=== PATIENT | male | born 1950 | race Caucasian/White ===

== ENCOUNTER 2017-12-23 19:48 | Emergency (ER) | payer OTHER ==
--- NOTE | 2017-12-23 20:18 | ER ---
Nurse's Notes [facility] Name: Bakari Damico Jr Age: 67 yrs Sex: Male : 1950 Arrival Date: 12/23/2017 Time: 19:52 Bed Waiting Private MD: Diagnosis: ED Course: 12/23 19:52 Patient arrived in ED. es 20:17 Ramin Macias MD is Attending Physician. aj Administered Medications: No medications were administered Outcome: 20:16 Eloped from waiting room, Time discovered patient gone: December 23, 2017 at 20:17 aj 20:17 Patient left the ED. aj Signatures: Yara Medeiros, RN RN Galina Curtis es
== END 2017-12-23 20:17 | disposition left against medical advice (07) ==
LOC: ER 19:48
DX: Z53.21 Procedure and treatment not carried out due to patient leaving prior to being seen by health care provider (principal)

== ENCOUNTER 2017-12-23 20:56 | Observation (INO) | payer OTHER ==
[2017-12-23] MEDS ORDERED: ACETAMINOPHEN 500 MG TAB ONE ×2 (21:11→23:53)
[2017-12-23 22:03] LABS: Urine Bacteria >50 /HPF (NONE SEEN)
[2017-12-23 22:04] LABS: Urine Culture Reflex Order NOT NEEDED
[2017-12-23 22:06] LABS: Urine Blood 2+ (NEG); Urine Glucose NEGATIVE (NEG); Urine Protein 1+ (NEG)
[2017-12-23] MEDS ORDERED: MORPHINE 4 MG/ML SYR ONE (22:35)
[2017-12-23] MEDS ORDERED: ONDANSETRON 4 MG/2 ML VIAL ONE (22:35)
[2017-12-23] MEDS ORDERED: NA CHLORIDE 0.9% 1,000 ML ONE (22:35)
[2017-12-23 22:50] LABS: Absolute Lymphocytes (CBC) 1.1 K/uL (0.7-4.9); Absolute Monocytes 1.4 K/uL (0.1-1.3); Absolute Neutrophil 16.5 K/uL (1.8-8.0); Basophils % 0.6 % (0-1.3); Lymphocytes % 5.9 % (15.3-44.8); MCH 30.4 pg (27.0-35.0); MCV 92.5 fL (80-100); MPV 8.3 fL (7.6-11.3); Monocytes % 7.5 % (3.3-12.3); RBC Red Blood Cell Count 4.65 M/uL (4.33-5.43)
[2017-12-23 22:59] LABS: Potassium 3.3 mEq/L (3.6-5.0)
[2017-12-23 23:05] LABS: Albumin 3.9 g/dL (3.2-5.5); Bilirubin Direct 0.3 mg/dL (0-0.2); Bilirubin Total 1.8 mg/dL (0.3-1.2); Protein, Total 6.8 g/dL (6.0-8.3)
[2017-12-23 23:42] LABS: Blood Morphology Comment NOT SEEN (NOT SEEN); Platelet Estimate ADEQ
[2017-12-24] MEDS ORDERED: MORPHINE 4 MG/ML SYR ONE (00:41)
[2017-12-24] MEDS ORDERED: ONDANSETRON 4 MG/2 ML VIAL ONE (00:41)
[2017-12-24] MEDS ORDERED: CEFTRIAXONE/SWI 1gm 1 GM/10 ML SYR ONE (01:18)
--- NOTE | 2017-12-24 01:32 | ER ---
Nurse's Notes [facility] Name: Bakari Damico Jr Age: 67 yrs Sex: Male : 1950 Arrival Date: 12/23/2017 Time: 21:00 Bed 18 Private MD: Diagnosis: Pyelonephritis Presentation: 12/23 21:10 Presenting complaint: Patient states: Low back pain, burning with urination and chills aj for 3 days. Transition of care: patient was not received from another setting of care. Onset of symptoms was December 21, 2017. Risk Assessment: Do you want to hurt yourself or someone else? Patient reports no desire to harm self or others. Initial Sepsis Screen: Does the patient meet any 2 criteria? Temp <36.0*C (96.8*F)) or > 38.3*C (100.4*F). Care prior to arrival: None. 21:10 Method Of Arrival: Ambulatory aj 21:10 Acuity: JEANMARIE 3 aj 22:14 Initial Sepsis Screen: Does the patient have a suspected source of infection? Yes: ea Dysuria/Frequency/Urgency/UTI. Triage Assessment: 21:12 General: Appears in no apparent distress. comfortable, Behavior is calm, cooperative, aj appropriate for age. Neuro: Level of Consciousness is awake, alert, obeys commands, Oriented to person, place, time, situation, Appropriate for age. Respiratory: Airway is patent Respiratory effort is even, unlabored, Respiratory pattern is regular, symmetrical. : Reports burning with urination, pain in lower back. Derm: Skin is intact, is healthy with good turgor, Skin is pink, warm \T\ dry. normal. Historical: - Allergies: 21:12 No Known Allergies; aj - Home Meds: 21:12 losartan oral oral [Active]; atorvastatin oral oral [Active]; aj - PMHx: 21:12 Hyperlipidemia; Hypertension; aj - PSHx: 21:12 Bladder; aj - Immunization history:: Adult Immunizations up to date. - Social history:: Smoking status: Patient/guardian denies using tobacco. - Ebola Screening: : Patient negative for fever greater than or equal to 101.5 degrees Fahrenheit, and additional compatible Ebola Virus Disease symptoms Patient denies exposure to infectious person Patient denies travel to an Ebola-affected area in the 21 days before illness onset No symptoms or risks identified at this time. Screenin:14 Abuse screen: Denies threats or abuse. Nutritional screening: No deficits noted. ea Tuberculosis screening: No symptoms or risk factors identified. Fall Risk None identified. Assessment: 22:13 General: Appears uncomfortable, Behavior is calm, cooperative, appropriate for age. ea Pain: Complains of pain in left low back and right low back Pain currently is 4 out of 10 on a pain scale. Quality of pain is described as aching. Neuro: Level of Consciousness is awake, alert, obeys commands, Oriented to person, place, time, situation. Cardiovascular: Patient's skin is warm and dry. Respiratory: Airway is patent Respiratory effort is even, unlabored, Respiratory pattern is regular, symmetrical. GI: Abdomen is round non-distended, Bowel sounds present X 4 quads. Abd is soft and non tender. : Reports burning with urination. EENT: No deficits noted. Derm: Skin is pink, warm \T\ dry. 23:19 Reassessment: Patient and/or family updated on plan of care and expected duration. Pain ea level reassessed. Pt resting with eyes closed, respirations even and unlabored, chest expansions even and symmetrical. No s/s of pain or discomfort noted at this time. 23:49 Reassessment: pt taken to CT. ea 12/24 00:36 Reassessment: Patient and/or family updated on plan of care and expected duration. Pain ea level reassessed. Patient is alert, oriented x 3, equal unlabored respirations, skin warm/dry/pink. pt c/o pain feels like it's coming back. 01:50 Reassessment: Patient and/or family updated on plan of care and expected duration. Pain ea level reassessed. Patient is alert, oriented x 3, equal unlabored respirations, skin warm/dry/pink. Patient states symptoms have improved. 02:15 Reassessment: Patient and/or family updated on plan of care and expected duration. Pain ea level reassessed. Pt resting with eyes closed, respirations even and unlabored, chest expansions even and symmetrical. No s/s of pain or discomfort noted at this time. 03:14 Reassessment: Patient and/or family updated on plan of care and expected duration. Pain ea level reassessed. Patient is alert, oriented x 3, equal unlabored respirations, skin warm/dry/pink. Patient states symptoms have improved. 03:40 Reassessment: Patient and/or family updated on plan of care and expected duration. Pain ea level reassessed. Patient is alert, oriented x 3, equal unlabored respirations, skin warm/dry/pink. Report called to Cherise BURROWS on fourth floor. Vital Signs: 12/23 21:12 BP 125 / 70; Pulse 91; Resp 20; Temp 101.7; Pulse Ox 96% on R/A; Weight 111.13 kg; aj Height 6 ft. 0 in. (182.88 cm); 22:15 BP 131 / 75; Pulse 80; Resp 18 S; Pulse Ox 99% on R/A; ea 23:03 BP 134 / 72; Pulse 78; Resp 18; Temp 99.8(O); Pulse Ox 95% on R/A; ea 12/24 00:37 BP 129 / 65; Pulse 78; Resp 18; Temp 98.1; Pulse Ox 97% on R/A; ea 01:50 BP 126 / 70; Pulse 76; Resp 19; Pulse Ox 99% on R/A; ea 02:30 BP 120 / 68; Pulse 70; Resp 18 S; Pulse Ox 98% on R/A; ea 03:40 BP 130 / 78; Pulse 72; Resp 18; Temp 98(O); Pulse Ox 99% on R/A; Pain 3/10; ea 12/23 21:12 Body Mass Index 33.23 (111.13 kg, 182.88 cm) aj ED Course: 12/23 21:00 Patient arrived in ED. es 21:12 Triage completed. aj 21:12 Arm band placed on left wrist. Patient placed. Antipyretics given from triage as aj ordered by an ER provider. 21:57 Tj Murphy NP is PHCP. pm1 21:58 Ramin Macias MD is Attending Physician. pm1 22:07 Arlin Sanchez, MARKOS is Primary Nurse. ea 22:14 Patient has correct armband on for positive identification. Bed in low position. Call ea light in reach. Side rails up X 1. 22:40 Inserted saline lock: 20 gauge in right antecubital area, using aseptic technique. ea Blood collected. 23:[address] via wheelchair. kw1 12/24 00:04 CT completed. Patient tolerated procedure well. Patient moved back from CT. kw1 00:09 CT Abd/Pelvis - W/Contrast: IV contrast only In Process Unspecified. EDMS 01:31 Kate Vallejo MD is Hospitalizing Provider. pm1 03:14 No provider procedures requiring assistance completed. ea 03:50 Patient admitted, IV remains in place. ea Administered Medications: 12/23 22:42 Drug: NS 0.9% 1000 ml Route: IV; Rate: 1000 ml; Site: right antecubital; ea 22:42 Drug: morphine 4 mg Route: IVP; Site: right antecubital; ea 23:25 Follow up: Response: No adverse reaction; Pain is decreased ea 22:42 Drug: Zofran 4 mg Route: IVP; Site: right antecubital; ea 23:24 Follow up: Response: No adverse reaction; Pain is decreased ea 12/24 00:15 Drug: Tylenol 1000 mg Route: PO; ea 01:15 Follow up: Response: No adverse reaction; Pain is decreased ea 00:45 Drug: morphine 2 mg Route: IVP; Site: right antecubital; ea 01:15 Follow up: Response: No adverse reaction; Pain is decreased ea 01:31 Drug: Rocephin 1 grams Route: IV; Rate: calculated rate; Site: right antecubital; ea 01:32 Drug: Zofran 4 mg Route: IVP; Site: right antecubital; ea Outcome: 01:32 Decision to Hospitalize by Provider. pm1 02:00 Instructed on the need for admit. ea 03:45 Admitted to Med/surg accompanied by tech, via wheelchair, room 212, with chart, Report ea called to Cherise BURROWS 03:45 Condition: improved 03:50 Patient left the ED. ea Signatures: Dispatcher [employer] Yara Gamez RN Galina Garcia Patrick SURFACE GRINDER SURFACE GRINDER pm1 Arlin Sanchez RN RN ea Wilhelm, Kimberly kw1 Ted Valdovinos RN RN mg2 Corrections: (The following items were deleted from the chart) 00:34 06 23:03 BP 134 / 72; Pulse 78bpm; Resp 18bpm; Pulse Ox 95% RA; mg2 ea 12/24 04:56 04:05 Patient left the ED. ea ea
--- NOTE | 2017-12-24 01:32 | EDPHYS ---
Physician Documentation [facility] Name: Bakari Damico Jr Age: 67 yrs Sex: Male : 1950 Arrival Date: 12/23/2017 Time: 21:00 Bed 18 Private MD: ED Physician Ramin Macias HPI: 12/24 01:24 This 67 yrs old Male presents to ER via Ambulatory with complaints of Urinary pm1 Problem. 01:25 The patient presents with flank pain, of the left low back and right low back. Onset: pm1 The symptoms/episode began/occurred 3 day(s) ago. Modifying factors: The symptoms are alleviated by nothing. Associated signs and symptoms: Pertinent positives: dysuria, fever, nausea, Pertinent negatives: abdominal pain, constipation, diarrhea, vomiting. Severity of symptoms: in the emergency department the symptoms are actually worse. The patient has experienced a previous episode, 2-3 years ago patient with prostatitis . The patient has not recently seen a physician, out of town. Patient with bilateral flank pain with burning with urination for 3 days. Patient with chills and fever. Historical: - Allergies: 12/23 21:12 No Known Allergies; aj - Home Meds: 21:12 losartan oral oral [Active]; atorvastatin oral oral [Active]; aj - PMHx: 21:12 Hyperlipidemia; Hypertension; aj - PSHx: 21:12 Bladder; aj - Immunization history:: Adult Immunizations up to date. - Social history:: Smoking status: Patient/guardian denies using tobacco. - Ebola Screening: : Patient negative for fever greater than or equal to 101.5 degrees Fahrenheit, and additional compatible Ebola Virus Disease symptoms Patient denies exposure to infectious person Patient denies travel to an Ebola-affected area in the 21 days before illness onset No symptoms or risks identified at this time. ROS: 12/24 01:25 Eyes: Negative for injury, pain, redness, and discharge, ENT: Negative for injury, pm1 pain, and discharge, Neck: Negative for injury, pain, and swelling, Cardiovascular: Negative for chest pain, palpitations, and edema, Respiratory: Negative for shortness of breath, cough, wheezing, and pleuritic chest pain, Abdomen/GI: Negative for abdominal pain, nausea, vomiting, diarrhea, and constipation. MS/Extremity: Negative for injury and deformity, Skin: Negative for injury, rash, and discoloration, Neuro: Negative for headache, weakness, numbness, tingling, and seizure. Constitutional: Positive for body aches, chills, fever, Negative for Back: Positive for flank pain, bilaterally. : Positive for flank pain, burning with urination. Exam: 01:25 Constitutional: This is a well developed, well nourished patient who is awake, alert, pm1 and in no acute distress. 01:25 Head/Face: Normocephalic, atraumatic. Eyes: Pupils equal round and reactive to light, extra-ocular motions intact. Lids and lashes normal. Conjunctiva and sclera are non-icteric and not injected. Cornea within normal limits. Periorbital areas with no swelling, redness, or edema. ENT: Nares patent. No nasal discharge, no septal abnormalities noted. Tympanic membranes are normal and external auditory canals are clear. Oropharynx with no redness, swelling, or masses, exudates, or evidence of obstruction, uvula midline. Mucous membranes moist. Neck: Trachea midline, no thyromegaly or masses palpated, and no cervical lymphadenopathy. Supple, full range of motion without nuchal rigidity, or vertebral point tenderness. No Meningismus. Chest/axilla: Normal chest wall appearance and motion. Nontender with no deformity. No lesions are appreciated. Cardiovascular: Regular rate and rhythm with a normal S1 and S2. No gallops, murmurs, or rubs. Normal PMI, no JVD. No pulse deficits. Respiratory: Lungs have equal breath sounds bilaterally, clear to auscultation and percussion. No rales, rhonchi or wheezes noted. No increased work of breathing, no retractions or nasal flaring. Back: No spinal tenderness. No costovertebral tenderness. Full range of motion. 01:25 Skin: Warm, dry with normal turgor. Normal color with no rashes, no lesions, and no evidence of cellulitis. MS/ Extremity: Pulses equal, no cyanosis. Neurovascular intact. Full, normal range of motion. 01:25 Constitutional: The patient appears febrile. 01:25 Abdomen/GI: Inspection: abdomen appears normal, Bowel sounds: normal, Palpation: abdomen is soft and non-tender, Rectal exam: Prostate: normal, rectal tone normal, mass, is not appreciated, tenderness, is not appreciated, Arlin BURROWS. 01:25 Neuro: Orientation: is normal, Motor: is normal, moves all fours, strength is normal. Vital Signs: 12/23 21:12 BP 125 / 70; Pulse 91; Resp 20; Temp 101.7; Pulse Ox 96% on R/A; Weight 111.13 kg; aj Height 6 ft. 0 in. (182.88 cm); 22:15 BP 131 / 75; Pulse 80; Resp 18 S; Pulse Ox 99% on R/A; ea 23:03 BP 134 / 72; Pulse 78; Resp 18; Temp 99.8(O); Pulse Ox 95% on R/A; ea 12/24 00:37 BP 129 / 65; Pulse 78; Resp 18; Temp 98.1; Pulse Ox 97% on R/A; ea 01:50 BP 126 / 70; Pulse 76; Resp 19; Pulse Ox 99% on R/A; ea 02:30 BP 120 / 68; Pulse 70; Resp 18 S; Pulse Ox 98% on R/A; ea 03:40 BP 130 / 78; Pulse 72; Resp 18; Temp 98(O); Pulse Ox 99% on R/A; Pain 3/10; ea 12/23 21:12 Body Mass Index 33.23 (111.13 kg, 182.88 cm) aj MDM: 12/23 21:59 Patient medically screened. [facility] 12/24 01:27 Data reviewed: vital signs. Data interpreted: Pulse oximetry: on room air is 97 %. pm1 Interpretation: normal. Counseling: I had a detailed discussion with the patient and/or guardian regarding: the historical points, exam findings, and any diagnostic results supporting the discharge/admit diagnosis, lab results, radiology results, the need for further work-up and treatment in the hospital. 01:41 Physician consultation: Kate Vallejo MD was called at 01:41, was contacted at 01:42, pm1 regarding admission, patient's condition, and will see patient. 12/23 21:35 Order name: Urine Dipstick--Ancillary (enter results); Complete Time: 22:22 cc 12/23 21:35 Order name: Urine Microscopic Only; Complete Time: 22:22 cc 12/23 21:35 Order name: Urine Culture cc 12/23 22:22 Order name: Basic Metabolic Panel pm1 12/23 22:22 Order name: CBC with Diff pm1 12/23 22:22 Order name: Creatinine for Radiology pm1 12/23 22:22 Order name: Hepatic Function pm1 12/23 22:22 Order name: Lipase pm1 12/23 22:23 Order name: Basic Metabolic Panel; Complete Time: 23:25 EDMS 12/23 22:23 Order name: CBC with Automated Diff; Complete Time: 23:49 EDMS 12/23 22:23 Order name: Creatinine (Radiology Only); Complete Time: 23:25 EDMS 12/23 22:23 Order name: Liver (Hepatic) Function; Complete Time: 23:25 EDMS 12/23 22:23 Order name: Lipase; Complete Time: 23:25 EDMS 12/23 22:59 Order name: Manual Differential; Complete Time: 23:49 EDMS 12/23 21:35 Order name: Urine Dipstick-Ancillary (obtain specimen); Complete Time: 22:12 cc 12/23 22:22 Order name: IV Saline Lock; Complete Time: 22:43 pm1 12/23 22:22 Order name: Labs collected and sent; Complete Time: 22:43 pm1 12/23 22:23 Order name: CT Abd/Pelvis - W/Contrast: IV contrast only; Complete Time: 17:13 pm1 12/23 23:26 Order name: Blood Culture Adult (2) pm1 Administered Medications: 12/23 22:42 Drug: NS 0.9% 1000 ml Route: IV; Rate: 1000 ml; Site: right antecubital; ea 22:42 Drug: morphine 4 mg Route: IVP; Site: right antecubital; ea 23:25 Follow up: Response: No adverse reaction; Pain is decreased ea 22:42 Drug: Zofran 4 mg Route: IVP; Site: right antecubital; ea 23:24 Follow up: Response: No adverse reaction; Pain is decreased ea 12/24 00:15 Drug: Tylenol 1000 mg Route: PO; ea 01:15 Follow up: Response: No adverse reaction; Pain is decreased ea 00:45 Drug: morphine 2 mg Route: IVP; Site: right antecubital; ea 01:15 Follow up: Response: No adverse reaction; Pain is decreased ea 01:31 Drug: Rocephin 1 grams Route: IV; Rate: calculated rate; Site: right antecubital; ea 01:32 Drug: Zofran 4 mg Route: IVP; Site: right antecubital; ea Disposition: 12/24/17 01:32 Hospitalization ordered by Kate Vallejo for Observation. Preliminary diagnosis is Pyelonephritis. - Bed requested for Telemetry/MedSurg (observation). - Status is Observation. ea - Condition is Stable. - Problem is new. - Symptoms have improved. UTI on Admission? Yes Addendum: 12/26/2017 06:52 Co-signature as Attending Physician, Ramin Macias MD I agree with the assessment and c ryan plan of care. Signatures: Dispatcher [employer] EDMS Lyudmila Escamilla RN RN kl Myers, Amanda, RN RN aj Anderson, Corey, MD MD cha Christian, Chelsea cc Marinas, Patrick, STAFF DESIGN ENGINEER STAFF DESIGN ENGINEER pm1 Arlin Sanchez RN RN ea Corrections: (The following items were deleted from the chart) 12/24 01:32 01:32 Hospitalization Ordered by Kate Vallejo MD for Observation. Preliminary pm1 diagnosis is pyelonephritis. Bed requested for Telemetry/MedSurg (observation). Status is Observation. Condition is Stable. Problem is new. Symptoms have improved. UTI on Admission? Yes. pm1 02:53 01:32 12/24/2017 01:32 Hospitalization Ordered by Kate Vallejo MD for Observation. kl Preliminary diagnosis is Pyelonephritis. Bed requested for Telemetry/MedSurg (observation). Status is Observation. Condition is Stable. Problem is new. Symptoms have improved. UTI on Admission? Yes. pm1 04:05 02:53 12/24/2017 01:32 Hospitalization Ordered by Kate Vallejo MD for Observation. ea Preliminary diagnosis is Pyelonephritis. Bed requested for Telemetry/MedSurg (observation). Status is Observation. Condition is Stable. Problem is new. Symptoms have improved. UTI on Admission? Yes. rosario
--- NOTE | 2017-12-24 02:45 | P.HP ---
Certification for Inpatient Patient admitted to: Observation With expected LOS: <2 Midnights Practitioner: I am a practitioner with admitting privileges, knowledge of patient current condition, hospital course, and medical plan of care. Services: Services provided to patient in accordance with Admission requirements found in Title 42 Section 412.3 of the Code of Federal Regulations Patient History Date of Service: 12/24/17 Reason for admission: sepsis due to UTI History of Present Illness: Mr Damico is a 67 years old male with history of HTN, Dyslipidemia, prostatitis , benign bladder tumor removed about 5 years ago, who start yesterday with back pain associated with chills, nausea and generalized malaise. He was also complaining of burning urination. Along the day, the symptoms partially improved , however, later last night, he start feeling bad again and decided to come to ER to be evaluated. At arrival, he was febrile 101.7 F, lab work remarkable for leukocytosis, 19.7K, bands 6%, UA abnormal consistent with UTI. - Past Medical/Surgical History -: HTN -: Dyslipidemia -: prostatitis -: bladder - Family History Family History: Reviewed- Non-Contributory - Social History Smoking Status: Former smoker Alcohol use: Yes CD- Drugs: No Caffeine use: Yes Place of Residence: Home Review of Systems 10-point ROS is otherwise unremarkable Physical Examination - Physical Exam General: Alert, In no apparent distress HEENT: Atraumatic, PERRLA, Mucous membr. moist/pink, EOMI, Sclerae nonicteric Neck: Supple, 2+ carotid pulse no bruit, No LAD, Without JVD or thyroid abnormality Respiratory: Clear to auscultation bilaterally, Normal air movement Cardiovascular: Regular rate/rhythm, Normal S1 S2 Gastrointestinal: Normal bowel sounds, No tenderness Musculoskeletal: No tenderness Integumentary: No rashes Neurological: Normal speech, Normal strength at 5/5 x4 extr, Normal tone, Normal affect Lymphatics: No axilla or inguinal lymphadenopathy - Studies Laboratory Data (last 24 hrs) 12/23/17 22:30: Creatinine 1.17 12/23/17 22:30: WBC 19.2 H, Hgb 14.1, Hct 43.0, Plt Count 177 12/23/17 22:30: Sodium 132 L, Potassium 3.3 L, BUN 18, Creatinine 1.24, Glucose 118, Total Bilirubin 1.8 H, AST 16, ALT 19, Alkaline Phosphatase 57, Lipase 22 Assessment and Plan - Problems (Diagnosis) (1) Sepsis Current Visit: Yes Status: Acute Qualifiers: Sepsis type: sepsis due to unspecified organism Qualified Code(s): A41.9 - Sepsis, unspecified organism (2) UTI (urinary tract infection) Current Visit: Yes Status: Acute Qualifiers: Urinary tract infection type: acute cystitis Hematuria presence: without hematuria Qualified Code(s): N30.00 - Acute cystitis without hematuria (3) HTN (hypertension) Current Visit: Yes Status: Acute Qualifiers: Hypertension type: essential hypertension Qualified Code(s): I10 - Essential (primary) hypertension (4) Dyslipidemia Current Visit: Yes Status: Acute - Plan #1 sepsis: He has fever, leukocytosis with bandemia. This is secondary to UTI. Consider prostatitis, since he has previous history with similar presentation. Will order PSA. Blood and urine culture in process. #2 HTN: will resume his home medication after been verified. - Advance Directives Does patient have a Living Will: No Does patient have a Durable POA for Healthcare: No - Code Status/Comfort Care Code Status Assessed: Yes Code Status: Full Code
[2017-12-24] MEDS ORDERED: ONDANSETRON 4 MG/2 ML VIAL IV PRN (03:46)
[2017-12-24] MEDS: NA CHLORIDE 0.9% 1,000 ML IV SCH ×3 (04:24→23:46)
[2017-12-24 05:07] LABS: Absolute Lymphocytes (CBC) 0.8 K/uL (0.7-4.9); Absolute Monocytes 0.9 K/uL (0.1-1.3); Absolute Neutrophil 15.4 K/uL (1.8-8.0); Basophils % 0.2 % (0-1.3); Eosinophils % 0.1 % (0-4.4); Hematocrit 43.8 % (39.6-49.0); Lymphocytes % 4.9 % (15.3-44.8); MCH 30.9 pg (27.0-35.0); MCV 93.3 fL (80-100); MPV 8.2 fL (7.6-11.3); Monocytes % 5.3 % (3.3-12.3)
[2017-12-24 05:25] LABS: Magnesium 1.8 mg/dL (1.8-2.5); Potassium 3.5 mEq/L (3.6-5.0)
[2017-12-24] MEDS ORDERED: MAGNESIUM SULFATE 1 gm IVPB 1 GM/100 ML BAG IV ONE (05:27)
[2017-12-24] MEDS ORDERED: POTASSIUM 25 MEQ EFFERV TAB PO ONE (05:28)
[2017-12-24] MEDS ORDERED: Morphine 2 MG/2 ML SYR IV ONE (05:34)
[2017-12-24 06:07] VITALS: BMI 32.9
[2017-12-24] MEDS: ENOXAPARIN 40 MG/0.4 ML SQ SCH (07:56)
[2017-12-24] MEDS ORDERED: CEFTRIAXONE 1 GM/NS 50 ML 1 GM/50 ML BAG IV SCH (09:00)
[2017-12-24] MEDS ORDERED: PNEUMOCOCCAL VACCINE 0.5 ML IMVAC ONE (09:00)
--- NOTE | 2017-12-24 09:48 | RAD REPORT ---
EXAM DESCRIPTION: CT - Abdomen Pelvis W Contrast - 12/24/2017 3:23 am CLINICAL HISTORY: Back pain, dysuria, flank pain A preliminary written report was provided at the time of the study, and the report was reviewed prio r to final dictation. COMPARISON: None. TECHNIQUE: Biphasic, helical CT imaging of the abdomen and pelvis was performed following 100 ml non -ionic IV contrast. No oral contrast administered. All CT scans are performed using dose optimization technique as appropriate and may include automated exposure control or mA/KV adjustment according to patient size. FINDINGS: No suspicious findings in the lung bases. Liver, spleen and pancreas show no acute findings. Liver does demonstrate a mild diffuse fatty infilt ration. Gallbladder and biliary tree are also without suspicious finding. Gallstones can be occult. Symmetric renal function is seen with no hydronephrosis or suspicious renal mass. No pyelonephritis i dentified. Partially filled urinary bladder shows prominent love. Cystitis cannot be excluded. No bl adder calculus. Prostate gland is enlarged and projects into the bladder base. No adjacent edema to s uspect prostatitis. No dilated bowel loops or bowel wall thickening. Mild prominence of a few small bowel loops noted. No nspecific enteritis would be possible. The appendix is normal. No free air, free fluid or inflammator y stranding. No mass or bulky lymphadenopathy. A very small periumbilical fat filled hernia present. No adrenal abnormality. No suspicious bony findings. IMPRESSION: No obstruction, free air or surgically emergent finding. Love of the urinary bladder are prominent which may be artifact of partial contraction. Cystitis is not excluded and can be correlated with laboratory and exam findings. Enlargement of prostate gland without CT findings of prostatitis. Fatty infiltration of the liver. A few minimally prominent small bowel loops could indicate a nonspec ific enteritis.
[2017-12-24] MEDS: ACETAMINOPHEN 500 MG TAB PO PRN ×2 (12:08→18:12)
[2017-12-24] MEDS: TRAMADOL HCL 50 MG TAB PO PRN (18:17)
[2017-12-24] MEDS ORDERED: NA CHLORIDE 0.9% 500 ML IV ONE (18:51)
[2017-12-24] MEDS ORDERED: NA CHLORIDE 0.9% 500 ML ONE (18:55)
[2017-12-24] MEDS ORDERED: ATORVASTATIN 10 MG TAB PO SCH (21:00)
[2017-12-25] MEDS: NA CHLORIDE 0.9% 1,000 ML IV SCH (01:53)
[2017-12-25] MEDS: TRAMADOL HCL 50 MG TAB PO PRN (03:28)
[2017-12-25 04:58] LABS: Absolute Lymphocytes (CBC) 1.3 K/uL (0.7-4.9); Absolute Monocytes 1.1 K/uL (0.1-1.3); Absolute Neutrophil 14.1 K/uL (1.8-8.0); Basophils % 0.2 % (0-1.3); Eosinophils % 0.5 % (0-4.4); Hematocrit 39.7 % (39.6-49.0); MCH 30.4 pg (27.0-35.0); MCV 93.4 fL (80-100); MPV 8.4 fL (7.6-11.3); Monocytes % 6.8 % (3.3-12.3); RBC Red Blood Cell Count 4.25 M/uL (4.33-5.43)
[2017-12-25 05:20] LABS: Potassium 3.8 mEq/L (3.6-5.0)
[2017-12-25] MEDS ORDERED: POTASSIUM 25 MEQ EFFERV TAB PO ONE (06:06)
[2017-12-25] MEDS ORDERED: CEFTRIAXONE/SWI 1gm 1 GM/10 ML SYR IVP SCH (09:00)
[2017-12-25] MEDS ORDERED: ASPIRIN 81 MG CHEWABLE TABLET PO SCH (09:00)
[2017-12-25] MEDS ORDERED: LOSARTAN POTASSIUM 50 MG TABLET PO SCH (09:00)
[2017-12-25] MEDS ORDERED: HOME MED 1 EA UNK (Losartan Potassium [Losartan Potassium] 25 MG) PO SCH (09:00)
[2017-12-25] MEDS ORDERED: SIMVASTATIN 5 MG PO SCH (09:00)
[2017-12-25] MEDS: ENOXAPARIN 40 MG/0.4 ML SQ SCH (09:26)
[2017-12-25 09:34] VITALS: O2SAT 93
[2017-12-25 12:06] VITALS: BP 140/84; TEMP 98.2
--- NOTE | 2017-12-25 15:04 | P.SSS ---
Patient History Date of Service: 12/25/17 Primary Care Provider: PRESTON Reason for admission: sepsis due to UTI History of Present Illness: SEE HPI Allergies No Known Allergies Allergy (Unverified 12/24/17 03:44) Home Medications: Aspirin 81 mg PO DAILY 12/24/17 Losartan Potassium 25 mg PO DAILY 12/24/17 Simvastatin 5 mg PO DAILY 12/24/17 Levofloxacin [Levaquin] 500 mg PO DAILY #10 tab 12/25/17 Metronidazole [Flagyl] 500 mg PO Q8H #30 tablet 12/25/17 - Past Medical/Surgical History Has patient received pneumonia vaccine in the past: No Diabetic: No -: HTN -: Dyslipidemia -: prostatitis -: bladder - Family History Family History: Reviewed- Non-Contributory - Social History Smoking Status: Former smoker Alcohol use: No CD- Drugs: No Caffeine use: Yes Place of Residence: Home Review of Systems General: As per HPI Physical Examination - Vital Signs Temperature: 98.2 F Blood Pressure: 140/84 Pulse: 65 Respirations: 18 Pulse Ox (%): 95 - Physical Exam General: Alert, In no apparent distress HEENT: Atraumatic, PERRLA, Mucous membr. moist/pink, EOMI, Sclerae nonicteric Neck: Supple, 2+ carotid pulse no bruit, No LAD, Without JVD or thyroid abnormality Respiratory: Clear to auscultation bilaterally, Normal air movement Cardiovascular: Regular rate/rhythm, Normal S1 S2 Gastrointestinal: Normal bowel sounds, No tenderness Musculoskeletal: No tenderness Integumentary: No rashes Neurological: Normal gait, Normal speech, Normal strength at 5/5 x4 extr, Normal tone, Normal affect Lymphatics: No axilla or inguinal lymphadenopathy - Studies Microbiology Data (last 24 hrs): 12/23/17 21:30 Clean Catch Urine [place] Count - Final >100,000 CFU/ML. 12/23/17 21:30 Clean Catch Urine - Final Escherichia Coli - Diagnosis (Problem(s)) (1) Sepsis Status: Acute Qualifiers: Sepsis type: Escherichia coli Qualified Code(s): A41.51 - Sepsis due to Escherichia coli [E. coli] (2) UTI (urinary tract infection) Status: Acute Qualifiers: Urinary tract infection type: acute cystitis Hematuria presence: without hematuria Qualified Code(s): N30.00 - Acute cystitis without hematuria (3) Dyslipidemia Status: Chronic (4) HTN (hypertension) Status: Chronic Qualifiers: Hypertension type: essential hypertension Qualified Code(s): I10 - Essential (primary) hypertension Treatment Summary: Overall during the hospital stay patient remained stable Patient was initially admitted to the hospital for sepsis most likely secondary to urinary tract infection. Patient had a recent procedure done in the urologist office about 2-3 weeks ago where he had a bladder mass removed. After which she started having some trouble urinating. Urine culture was positive for E. coli. Patient was initially started on IV Levaquin. Was switched over to p.o. Levaquin and discharged home under stable condition. Patient also had an abdominal CT done here in the hospital which was negative for pyelonephritis however there was a possibility the enteritis. Patient denies having any diarrhea or constipation. However did complain of some abdominal pain and thus was discharged with Flagyl as well. Patient was asked to follow up with urologist due to enlarged prostate on the abdominal CT. Patient stated that he has an appointment in 1 week and will be following with him soon. - Disposition Disposition: ROUTINE DISCHARGE Condition: GOOD Patient Discharge Instructions: Please f.u with urology in 1 week post discharge. You were admitted to the hospital and was found to have ECOLI UTI. New medication. Levaquin and Flagyl Diet: Regular Activity: Ad moises
== END 2017-12-25 13:06 | disposition home or self-care (01) ==
LOC: ER 20:56 → ERHOLD 12-24 02:14 → 2ND 12-24 03:32
PROVIDERS: ADMIT Internal Medicine; ATTEND Family Medicine
DX: A41.9 Sepsis, unspecified organism (principal); N39.0 Urinary tract infection, site not specified; I10 Essential (primary) hypertension; E78.5 Hyperlipidemia, unspecified; Z87.891 Personal history of nicotine dependence
CPT/HCPCS: 36415 ×2; 74177; 80048 ×3; 80076; 83690; 83735 ×2; 84153; 85025 ×3; 87040 ×2; 87077; 87086; 87088; 87186; 96374; 96375; 99285; G0378 ×2; J0696 ×3; J1650 ×2; J2270; J2405 ×2; J3475; J7030 ×4; Q9967; 81003; 81015